=== PATIENT | male | born 1970 ===

== ENCOUNTER 2020-03-21 22:50 | Emergency (ER) | payer SELFPAY ==
[~2020-03-21] VITALS: Ht 177.8 cm; Wt 72.6 kg
--- NOTE | 2020-03-21 23:05 | NUR ---
Dr. Dimas at bedside for MSE.
[2020-03-21] MEDS ORDERED: ZIPRASIDONE MESYLATE 20 MG VIAL IM ONE ×2 (23:13→23:15)
--- NOTE | 2020-03-21 23:28 | NUR ---
Pt provided urine sample, sent to lab.
[2020-03-21 23:33] LABS: BASOPHILS % (AUTO) 0.5 % (0.0-2.0); CARBON DIOXIDE 27 mmol/L (21-32); CHLORIDE 108 mmol/L (98-107); EOSINOPHILS # (AUTO) 0.1 K/uL (0.0-0.7); EOSINOPHILS % (AUTO) 1.1 % (0.0-7.0); GLUCOSE 119 mg/dL (74-106); HEMATOCRIT 41.2 % (36.7-47.1); LYMPHOCYTES # (AUTO) 2.8 K/uL (20.0-40.0); LYMPHOCYTES % (AUTO) 28.7 % (20.5-51.5); MEAN CORPUSCULAR HEMOGLOBIN 31.1 uug (23.8-33.4); MEAN CORPUSCULAR HGB CONC 34 g/dL (32.5-36.3); MEAN CORPUSCULAR VOLUME 91.6 fL (73.0-96.2); MONOCYTES # (AUTO) 0.6 K/uL (2.0-10.0); MONOCYTES % (AUTO) 6.1 % (0.0-11.0); NEUTROPHILS # (AUTO) 6.1 K/uL (1.8-8.9); NEUTROPHILS % (AUTO) 63.6 % (38.5-71.5); PLATELET COUNT (AUTO) 265 K/uL (152-348); UREA NITROGEN, BLOOD 20 mg/dL (7-18); WHITE BLOOD COUNT (AUTO) 9.6 K/uL (3.6-10.2)
[2020-03-21 23:41] LABS: ETHANOL < 3 MG/DL (0-0)
[2020-03-21 23:46] LABS: THYROID STIMULATING HORMONE 1.289 mIU/mL (0.358-3.740)
[2020-03-21 23:48] LABS: ALANINE AMINOTRANSFERASE 56 U/L (16-63); ALKALINE PHOSPHATASE 87 U/L (50-136); ASPARTATE AMINOTRANSFERASE 51 U/L (15-37); BILIRUBIN,DIRECT 0.1 mg/dL (0.0-0.2); BILIRUBIN,TOTAL 0.5 mg/dL (0.2-1.0); CREATINE KINASE, TOTAL 1550 U/L (39-308); TOTAL PROTEIN, SERUM 7.2 g/dL (6.4-8.2)
[2020-03-21 23:55] LABS: *BILIRUBIN,URIN NEGATIVE (NEGATIVE); *BLOOD, URINE NEGATIVE (NEGATIVE); *CLARITY,URINE CLEAR (CLEAR); *COLOR,URINE YELLOW (YELLOW); *KETONES,URINE NEGATIVE (NEGATIVE); LEUKOCYTE ESTERASE ,URINE NEGATIVE (NEGATIVE); NITRITE, URINE NEGATIVE (NEGATIVE); UGLUCOSE NEGATIVE (NEGATIVE)
[2020-03-22 00:08] LABS: ACETAMINOPHEN < 2.0 ug/mL (10-30)
[2020-03-22 00:22] LABS: *AMPHETAMINE, URINE NEGATIVE (NEGATIVE); *BARBITURATE, URINE NEGATIVE (NEGATIVE); *CANNABINOID, URINE POSITIVE (NEGATIVE); *COCCAINE, URINE NEGATIVE (NEGATIVE); *OPIATE, URINE NEGATIVE (NEGATIVE); *PHENCYCLIDINE SCREEN,URINE NEGATIVE (NEGATIVE)
[2020-03-22 00:28] LABS: BACTERIA,URINE NONE SEEN /HPF (NONE SEEN); RBC,URINE 0-3 /HPF (0-3); SQUAMOUS EPITHELIAL CELL,UR NONE SEEN /HPF (NONE SEEN); WBC,URINE 0-3 /HPF (0-3)
--- NOTE | 2020-03-22 03:12 | NUR ---
Called Sandy Barnett RN PET for psych eval, left message.
[2020-03-22] MEDS ORDERED: IV NS 1000 ML 1,000 ML IV ONE (04:15)
--- NOTE | 2020-03-22 04:20 | NUR ---
Sandy Barnett RN PET at bedside for psych eval.
--- NOTE | 2020-03-22 05:19 | NUR ---
Patient given written and verbal discharge instructions. Patient verbalizes understanding of instructions. Patient is ambulatory with steady gait. Refuses offer of residential placement. Patient given list of available shelters in surrounding area. Pt provided with food per patient request, Pt arranging own transportation back to [facility]. VSS, no acute signs of distress, AxO x 3, will follow up with psychiatrist as discussed with PET meat inspector.
[2020-03-22 05:22] VITALS: BP 115/66
== END 2020-03-22 05:22 | disposition home or self-care (01) ==
LOC: ER 22:53
DX: F20.0 Paranoid schizophrenia (principal); Z91.14 Patient's other noncompliance with medication regimen; R00.0 Tachycardia, unspecified; Z80.8 Family history of malignant neoplasm of other organs or systems; E87.8 Other disorders of electrolyte and fluid balance, not elsewhere classified; R73.9 Hyperglycemia, unspecified
CPT/HCPCS: 36415; 80048; 80076; 80307 ×2; 80329; 81001; 82550; 84443; 85025; 93005; 96360; 96372; 99284; G0480; J3486; A4663; J7030